=== PATIENT | female | born 1940 | race Caucasian/White ===

== ENCOUNTER → 2016-10-22 | Day surgery (SDC) | payer MEDICARE, BC ==
[~2016-10-22] MED LIST: BACITRACIN IM FOR SOLN 50,000 UNIT VIAL ONE; BUPIVACAINE HCL PF 0.5% 30 ML VIAL ONE; BUPIVACAINE HCL PF 0.75% 30 ML VIAL ONE; LACTATED RINGER'S 1000 ML INJ 1,000 ML ONE; LIDOCAINE 1.5%/EPINEPHrine 1:200,000 PF SOLN 30 ML AMP ONE; MIDAZOLAM HCL 2 MG/2 ML VIAL ONE; ONDANSETRON HCL 4 MG/2 ML VIAL IV PUSH ONE; PROPOFOL 500 MG/50 ML BTL IV ONE; SODIUM CHLORIDE 0.9% 20 ML VIAL ONE; SODIUM CHLORIDE 0.9% 250 ML ADDBAG IV ONE; VANCOMYCIN HCL 1000 MG VIAL ONE; ceFAZolin INJ 1,000 MG VIAL ONE
--- NOTE | 2016-10-23 05:24 | MP ---
cc: GREGG WHITE DATE OF SURGERY October 22, 2016. PREOPERATIVE DIAGNOSIS Left distal radius fracture, intraarticular, three-part. POSTOPERATIVE DIAGNOSIS Left distal radius fracture, intraarticular, three-part. SURGEON Gregg White MD DIRECTOR OF VITAL STATISTICS SONAL Aldridge The surgical procedure was assisted by my Advanced Registered Nurse Practitioner. My [employer]'s presence was necessary throughout this case for the manipulation and positioning of the surgical extremity. My [employer] was assisting me throughout the duration of this procedure. The skill set of an Advanced Registered Nurse Practitioner was medically necessary to complete this procedure. During the surgical case, the medical technician was working at the back table and the Advanced Registered Nurse Practitioner was directly assisting me. PROCEDURE Left distal radius fracture, open reduction internal fixation of three-part intraarticular fracture. ESTIMATED BLOOD LOSS Minimal ANESTHESIA Axillary block and general. TOURNIQUET TIME 15 minutes at 250 mmHg pressure. PROCEDURE The patient was brought back to the operative theater after an axillary block had been performed. She then had general anesthesia performed. The patient had intravenous vancomycin and Ancef. The left upper extremity was prepped and draped in the usual sterile fashion. We exsanguinated the arm, raised the tourniquet. Standard volar incision was made with dissection through the flexor carpi radialis sub-sheath. We reflected the pronator quadratus, identified the fracture which was displaced and shortened. The intraarticular component was nondisplaced. The metaphysis was displaced. I removed some healing granulation tissue. We then anatomically reduced the fracture and brought it out to length. This was provisionally held in position and then secured with a [employer] pre-contoured standard size locking distal radius plate. We secured first a sliding screw hole and then we secured four distal screws with no intraarticular penetration. We then secured the fracture with two locking screws proximally which all had excellent length. Final fluoroscopic images were obtained. The tourniquet was released. Hemostasis was achieved. We irrigated and then closed the skin with 2-0 Vicryl, followed by 3-0 nylon. The patient placed into a volar splint. Postoperative plan is start early range of motion. MD SHANIKA Jiménez/GRAYSON /1:50 PM /5:15 AM
== END | disposition home or self-care (01) ==
LOC: ESDC 11:21
PROVIDERS: ATTEND Orthopaedic Surgery
DX: S52.572A Other intraarticular fracture of lower end of left radius, initial encounter for closed fracture (principal)
CPT/HCPCS: 01830; 01991; 25609; 64417; 73110; 76000; C1713; J0690; J2250; J2405; J3370; J7120